=== PATIENT | female | born 1960 | race Caucasian/White ===

== ENCOUNTER → 2017-08-26 12:25 | Outpatient (CLI) | payer BC ==
[2017-08-26 13:58] VITALS: Ht 177.8 cm
== END | disposition home or self-care (01) ==
LOC: D.FANS 12:25
DX: Z91.018 Allergy to other foods (principal)

== ENCOUNTER → 2017-09-10 16:35 | Outpatient (CLI) | payer BC | END | disposition home or self-care (01) | LOC: D.MAMMO 15:45 | DX: Z12.31 Encounter for screening mammogram for malignant neoplasm of breast (principal) ==